=== PATIENT | female | born 1965 | race Caucasian/White ===

== ENCOUNTER 2017-07-30 07:15 | Emergency (ER) | payer MEDICAID, OTHER ==
[~2017-07-30] VITALS: Ht 157.5 cm; Wt 106.0 kg
[2017-07-30 07:16] VITALS: BP 170/98
[2017-07-30] MEDS ORDERED: FLUORESCEIN OPHTHALMIC 1 MG STRIP EACHEYE ONE (07:30)
[2017-07-30] MEDS ORDERED: PROPARACAINE OPHTH 0.5%, 15ML EACHEYE ONE (07:30)
[2017-07-30] MEDS ORDERED: FLUORESCEIN OPHTHALMIC 1 MG STRIP ONE (07:36)
[2017-07-30] MEDS ORDERED: PROPARACAINE OPHTH 0.5%, 15ML ONE (07:36)
== END 2017-07-30 08:27 | disposition home or self-care (01) ==
LOC: ED 08:20
DX: S05.01XA Injury of conjunctiva and corneal abrasion without foreign body, right eye, initial encounter (principal); H16.041 Marginal corneal ulcer, right eye; J44.9 Chronic obstructive pulmonary disease, unspecified; Z88.0 Allergy status to penicillin; F17.200 Nicotine dependence, unspecified, uncomplicated; X58.XXXA Exposure to other specified factors, initial encounter; Y93.89 Activity, other specified; Y92.89 Other specified places as the place of occurrence of the external cause; Y99.8 Other external cause status
CPT/HCPCS: 99283